=== PATIENT | female | born 1965 | race Two or more races ===

== ENCOUNTER 2019-04-27 12:21 | Emergency (ER) | payer BC, OTHER ==
[~2019-04-27] VITALS: Ht 160 cm; Wt 70.3 kg
[2019-04-27 12:21] VITALS: BP_SYST 114
--- NOTE | 2019-04-27 12:25 | NUR ---
Patient triaged and placed in waiting room. VSS and patient appears in no acute distress at this time. Accompanied by SPOUSE, awaiting available bed, and MD notified of need for MSE.
--- NOTE | 2019-04-27 14:10 | NUR ---
Patient to ER bed H1 to gown for evaluation. Side rails up.
--- NOTE | 2019-04-27 14:15 | NUR ---
PT CAME TO ER C/O COUGH, BODY ACHES, CONGESTION SINCE YESTERDAY. PAIN 6/10 WHILE COUGHING.
--- NOTE | 2019-04-27 14:17 | NUR ---
DR MILES AT BEDSIDE FOR EVALUATION
--- NOTE | 2019-04-27 14:30 | NUR ---
Patient given written and verbal discharge instructions and verbalizes understanding. ER MD discussed with patient the results and treatment provided. Patient in stable condition. ID arm band removed. Rx of TYLENOL W/CODEINE, SUDAFED given. Patient educated on pain management and to follow up with PMD. Pain Scale 5/10 TOLERABLE. Opportunity for questions provided and answered. Medication side effect fact sheet provided.
[2019-04-27 14:40] VITALS: BP_SYST 114
== END 2019-04-27 14:30 | disposition home or self-care (01) ==
LOC: SED 12:21
DX: J11.1 Influenza due to unidentified influenza virus with other respiratory manifestations (principal)
CPT/HCPCS: 36415; 86710; 99283